=== PATIENT | male | born 1965 | race Caucasian/White ===

== ENCOUNTER 2018-03-22 09:56 | Emergency (ER) | payer BC ==
[2018-03-22] MEDS ORDERED: Sodium Chloride 0.9% 10 ML Syringe FLUSH PRN (10:31)
[2018-03-22] MEDS ORDERED: Ondansetron 4 MG/2 ML SDV IVPUSH ONE (10:32)
[2018-03-22] MEDS ORDERED: Sodium Chloride 0.9% 1,000 ML IV SCH (10:45)
--- NOTE | 2018-03-22 11:19 | EDM.PDOC ---
ED HPI GENERAL MEDICAL PROBLEM - General Chief Complaint: Gastrointestinal Problem Stated Complaint: SOB CHEST PAIN Time Seen by Provider: 03/22/18 11:00 Source of Information: Reports: Patient, RN Notes Reviewed History Limitations: Reports: No Limitations - History of Present Illness INITIAL COMMENTS - FREE TEXT/NARRATIVE: Patient is a 52 year old male who presents to the ED for the evaluation of nausea, vomiting, and diarrhea since Saturday 03/18. He notes that he has not been able to keep any food or water down by mouth since then. He states that he has felt hot/cold, with the sweats, and now has muscle cramps all over, he feels dizzy and has some chest wall pain. He has not taken any medications to make this feel better has tried to take in some Pedialyte. He states that the hasn't really been able to pee, and the little amount that he has was a dark precious in color. He notes that he has had a previous umbilical hernia repaired that he believes he may have torn again from all of the heaving from vomiting. Duration: Day(s): (4) Left Chest Pain Score (Numeric/FACES): 3 - Related Data Allergies Allergy/AdvReac Type Severity Reaction Status Date / Time No Known Allergies Allergy Verified 03/22/18 10:15 Home Meds: Home Meds Aspirin [Halfprin] 162 mg PO DAILY 01/21/18 [History] Escitalopram [Lexapro] 20 mg PO DAILY 01/21/18 [History] Ginkgo Biloba 120 mg PO DAILY 01/21/18 [History] Metoprolol Succinate [Toprol XL 100mg] 100 mg PO DAILY 01/21/18 [History] Ondansetron [Zofran ODT] 4 mg PO Q6H PRN #24 tab.dis 03/22/18 [Rx] Past Medical History HEENT History: Reports: Impaired Vision Cardiovascular History: Reports: Hypertension, Stents, Other (See Below) Other Cardiovascular History: SVT - Past Surgical History GI Surgical History: Reports: Hernia Repair/Other Social & Family History - Family History Family Medical History: Noncontributory - Tobacco Use Smoking Status *Q: Current Every Day Smoker Years of Tobacco use: 30 Packs/Tins Daily: 0.5 - Caffeine Use Caffeine Use: Reports: Coffee, Energy Drinks, Soda - Alcohol Use Days Per Week of Alcohol Use: 2 Number of Drinks Per Day: 4 Total Drinks Per Week: 8 - Recreational Drug Use Recreational Drug Use: No ED ROS GENERAL - Review of Systems Review Of Systems: See Below Constitutional: Reports: Fever, Chills, Fatigue HEENT: Reports: No Symptoms Respiratory: Reports: Cough Cardiovascular: Reports: Chest Pain (chest wall pain). Denies: Syncope GI/Abdominal: Reports: Abdominal Pain, Diarrhea, Nausea, Vomiting : Reports: Other (little urine output) Musculoskeletal: Reports: Muscle Pain (general muscle aches all over) Skin: Reports: No Symptoms Neurological: Reports: No Symptoms Psychiatric: Reports: No Symptoms Hematologic/Lymphatic: Reports: No Symptoms Immunologic: Reports: No Symptoms ED EXAM, GI/ABD - Physical Exam Exam: See Below Exam Limited By: No Limitations General Appearance: Alert, WD/WN, No Apparent Distress Eyes: Bilateral: Normal Appearance Ears: Normal External Exam Nose: Normal Inspection Throat/Mouth: Normal Inspection, Normal Oropharynx, No Airway Compromise, Other (oral mucosa dry) Head: Atraumatic, Normocephalic Neck: Normal Inspection Respiratory/Chest: No Respiratory Distress, Lungs Clear, Normal Breath Sounds, No Accessory Muscle Use, Chest Non-Tender Cardiovascular: Normal Peripheral Pulses, Regular Rate, Rhythm, No JVD, No Murmur GI/Abdominal Exam: Normal Bowel Sounds, Soft, Tender (generalized tenderness to entire abdomen), Hernia (superior umbilical hernia, this is tender, but does not elicit exquisite tenderness to warrant further investigation at this time.) Back Exam: Normal Inspection, Full Range of Motion Extremities: Normal Inspection, Normal Capillary Refill Neurological: Alert, Oriented, Normal Cognition, No Motor/Sensory Deficits Psychiatric: Normal Affect, Normal Mood Skin Exam: Warm, Dry, Intact, Normal Color, No Rash Lymphatic: No Adenopathy EKG INTERPRETATION EKG Date: 03/22/18 Time: 10:03 Rhythm: NSR Rate (Beats/Min): 73 [place]: Normal () P-Wave: Present QRS: Normal ST-T: Normal QT: Normal EKG Interpretation Comments: Reviewed with Dr. Albrecht Course - Vital Signs Last Recorded V/S: Last Vital Signs Temp 96.6 F 03/22/18 10:03 Pulse 73 03/22/18 10:03 Resp 17 03/22/18 10:03 BP 144/92 H 03/22/18 10:03 Pulse Ox 99 03/22/18 10:03 - Orders/Labs/Meds Orders: Active Orders 24 hr Category Date Time Status EKG 12 Lead [EKG Documentation Completion] [RC] STAT Care 03/22/18 10:32 Active Peripheral IV Care [RC] . DIRECTED Care 03/22/18 10:31 Active Sodium Chloride 0.9% [Normal Saline] 1,000 ml Med 03/22/18 10:45 Active IV ONETIME Sodium Chloride 0.9% [Saline Flush] Med 03/22/18 10:31 Active 10 ml FLUSH ASDIRECTED PRN Peripheral IV Insertion Adult [OM.PC] Stat Oth 03/22/18 10:31 Ordered Medication Orders Sodium Chloride (Normal Saline) 1,000 mls @ 999 mls/hr IV ONETIME [facility] Last Admin: 03/22/18 10:53 Dose: 999 mls/hr Sodium Chloride (Saline Flush) 10 ml FLUSH ASDIRECTED PRN PRN Reason: Keep Vein Open Last Admin: 03/22/18 10:54 Dose: 10 ml Labs: Laboratory Tests 03/22/18 03/22/18 Range/Units 10:56 10:56 WBC 10.24 H (4.23-9.07) K/mm3 RBC 5.40 (4.63-6.08) M/mm3 Hgb 17.1 (13.7-17.5) gm/L Hct 50.7 (40.1-51.0) % MCV 93.9 H (79.0-92.2) fl MCH 31.7 (25.7-32.2) pg MCHC 33.7 (32.2-35.5) g/dl RDW Std Deviation 44.3 H (35.1-43.9) fL Plt Count 267 (163-337) K/mm3 MPV 10.2 (9.4-12.3) fl Neut % (Auto) 67.4 (34.0-67.9) % Lymph % (Auto) 20.2 L (21.8-53.1) % [place] % (Auto) 11.1 (5.3-12.2) % Eos % (Auto) 0.9 (0.8-7.0) Baso % (Auto) 0.1 (0.1-1.2) % Neut # (Auto) 6.90 H (1.78-5.38) K/mm3 Lymph # (Auto) 2.07 (1.32-3.57) K/mm3 [place] # (Auto) 1.14 H (0.30-0.82) K/mm3 Eos # (Auto) 0.09 (0.04-0.54) K/mm3 Baso # (Auto) 0.01 (0.01-0.08) K/mm3 Sodium 136 (136-145) mEq/L Potassium 3.9 (3.5-5.1) mEq/L Chloride 99 (98-107) mEq/L Carbon Dioxide 24 (21-32) mEq/L Anion Gap 16.9 H (5-15) BUN 20 H (7-18) mg/dL Creatinine 1.1 (0.7-1.3) mg/dL Est Cr Clr Drug Dosing 83.67 mL/min Estimated GFR (MDRD) > 60 (>60) mL/min BUN/Creatinine Ratio 18.2 H (14-18) Glucose 118 H (74-106) mg/dL Calcium 9.3 (8.5-10.1) mg/dL Total Bilirubin 0.9 (0.2-1.0) mg/dL AST 23 (15-37) U/L ALT 42 (16-63) U/L Alkaline Phosphatase 89 (46-116) U/L Total Protein 8.1 (6.4-8.2) g/dl Albumin 3.6 (3.4-5.0) g/dl Globulin 4.5 gm/dL Albumin/Globulin Ratio 0.8 L (1-2) Meds: Medications Generic Name Dose Route Start Last Admin Trade Name Freq PRN Reason Stop Dose Admin Sodium Chloride 1,000 mls @ 999 mls/hr 03/22/18 10:45 03/22/18 10:53 Normal Saline IV 999 mls/hr ONETIME [facility] Administration Sodium Chloride 10 ml 03/22/18 10:31 03/22/18 10:54 Saline Flush FLUSH 10 ml ASDIRECTED PRN Administration Keep Vein Open Discontinued Medications Generic Name Dose Route Start Last Admin Trade Name Freq PRN Reason Stop Dose Admin Sodium Chloride 1,000 mls @ 999 mls/hr 03/22/18 11:49 03/22/18 12:19 Normal Saline IV 03/22/18 12:49 999 mls/hr ONETIME ONE Administration Ketorolac Tromethamine 30 mg 03/22/18 12:19 03/22/18 12:25 Toradol IVPUSH 03/22/18 12:20 30 mg ONETIME ONE Administration Ondansetron HCl 4 mg 03/22/18 10:32 03/22/18 10:53 Zofran IVPUSH 03/22/18 10:33 4 mg ONETIME ONE Administration - Re-Assessments/Exams Free Text/Narrative Re-Assessment/Exam: 03/22/18 11:24 Pt presents to the ED for the evaluation for nausea/vomiting/diarrhea for around 4 days now. He was given 4 mg IV Zofran and an IV bolus of NS to start with, CBC, CMP have been ordered. His flu screen was negative. 03/22/18 12:44 Pt reassessed at bedside, he was sleeping, but states that he is starting to feel better, he is about longterm into his 2nd bag of IV fluids. He is complaining of some heart burn/GERD type symptoms, but still does not think he will be able to keep much down PO. Will order GI cocktail for him if he thinks he can handle PO medicine. I did order 30mg IV toradol for his general achiness and this did also seem to provide some relief. 03/22/18 13:44 Pt was reassessed at bedside, 2nd liter of fluid is done. He thinks that he will be able to tolerate PO liquid and some crackers. Will try this to see if he doesn't feel better. 3rd liter of fluid is questionable, will see how he tolerates the oral fluids and crackers. 03/22/18 14:07 Pt is upright and has been able to tolerate oral fluids and crackers. General diet recommendations have been given and a script for ODT zofran will be provided. Pt will be discharged home. Departure - Departure Time of Disposition: 14:08 Disposition: Home, Self-Care 01 Condition: Fair Clinical Impression: Viral gastroenteritis - Discharge Information *PRESCRIPTION DRUG MONITORING PROGRAM REVIEWED*: No *COPY OF PRESCRIPTION DRUG MONITORING REPORT IN PATIENT CESARIO: No Instructions: Viral Gastroenteritis, Adult, Nausea and Vomiting, Adult, Easy-to -Read Forms: ED Department Discharge, ED Return to Work/School Form Additional Instructions: You have been evaluated in the ED for your nausea and vomiting. Please take the zofran every 6 hours as needed for nausea. Recommend sticking to a clear liquid/bland diet for the next 24-48 hours, make sure to get plenty of rest. Please return to ED if your symptoms should change or worsen.
[2018-03-22] MEDS ORDERED: Sodium Chloride 0.9% 1,000 ML IV ONE (11:49)
[2018-03-22] MEDS ORDERED: Ketorolac 30 MG/ML SDV IVPUSH ONE (12:19)
== END 2018-03-22 14:40 | disposition home or self-care (01) ==
LOC: JD.ED 09:56
DX: A08.4 Viral intestinal infection, unspecified (principal); R07.89 Other chest pain; I10 Essential (primary) hypertension; F17.210 Nicotine dependence, cigarettes, uncomplicated; Z95.5 Presence of coronary angioplasty implant and graft; Z79.899 Other long term (current) drug therapy; Z79.82 Long term (current) use of aspirin
CPT/HCPCS: 36415; 80053; 85025; 87804; 93005; 96361; 96374; 96375; 99285; J1885; J2405; J7040; 99283